=== PATIENT | male | born 1995 | race African-American/Black ===

== ENCOUNTER 2020-06-13 10:17 | Emergency (ER) | payer MEDICAID, OTHER, SELFPAY ==
[~2020-06-13 10:17] MED LIST: Iopamidol-370 76% 500 ML 1 ML ONE
[2020-06-13] MEDS ORDERED: Ondansetron ODT 4 MG TAB ONE (10:20)
[2020-06-13 10:47] LABS: #Eosinphils 0.1 thou/uL (0.0-0.7); #Lymphocytes 3.1 thou/uL (1.20-3.40); #Monocytes 0.9 thou/uL (0.11-0.59); #Neutrophils 3.7 thou/uL (1.40-6.50); %Basophils 0.5 % (0.0-1.0); %Eosinophils 1.8 % (0.0-10.0); %Lymphocytes 39.6 % (21.0-51.0); %Monocytes 11.3 % (0.0-10.0); %Neutrophils 46.8 % (42.0-75.0); Hemoglobin 15.9 g/dL (14.0-18.0); Mean Corpuscular HGB CONC 32.9 g/dL (32.0-36.0); Mean Corpuscular Volume 87.9 fL (78.0-98.0); Mean Platelet Volume 9.4 fL (7.4-10.4); Platelet Count 243 thou/uL (130-400); RBC Distribution Width 12.4 % (11.5-14.5); White Blood Cell (WBC) Count 7.9 thou/uL (4.8-10.8)
[2020-06-13 10:53] LABS: INR-International Normal Ratio 0.9; PTT 24.9 sec (22.9-36.1); Prothrombin Time 12.9 sec (12.0-14.7)
[2020-06-13] MEDS ORDERED: Ondansetron PF 4 MG/2 ML Vial ONE ×2 (10:55)
[2020-06-13] MEDS ORDERED: Morphine 4 MG/ML VIAL ONE (10:55)
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
[2020-06-13 11:29] LABS: ALT (SGPT) 27 U/L (8-55); AST (SGOT) 50 U/L (5-34); Alkaline Phosphatase 60 U/L (40-110); Anion Gap 17 mmol/L (10-20); BUN (Urea Nitrogen) 23 mg/dL (8.9-20.6); Bilirubin, Total 0.5 mg/dL (0.2-1.2); Calc. Creatinine Clearance 0 mL/min (70-130); Calcium 9.6 mg/dL (7.8-10.44); Carbon Dioxide 25 mmol/L (22-29); Chloride 102 mmol/L (98-107); Estimated GFR-MDRD 83; Globulin 2.9 g/dL (2.4-3.5); Glucose 148 mg/dL (70-105); Lipase 25 U/L (8-78); Potassium 3.4 mmol/L (3.5-5.1); Protein, Total 7.9 g/dL (6.0-8.3); Sodium 141 mmol/L (136-145)
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
[2020-06-13 11:49] LABS: Phosphorus Less than 1.0 mg/dL (2.3-4.7)
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
--- NOTE | 2020-06-13 12:22 | RAD ---
RIGHT SHOULDER 3 VIEWS: HISTORY: Fall, right shoulder pain. FINDINGS/IMPRESSION: No acute fracture or dislocation is identified. POS: AH
--- NOTE | 2020-06-13 12:23 | RAD ---
RIGHT HUMERUS 2 VIEWS: HISTORY: Fall, right arm pain. FINDINGS/IMPRESSION: The right humerus appears intact. POS: AH
[2020-06-13] MEDS ORDERED: Ketorolac Tromethamine 30 MG/ML VIAL ONE (12:25)
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
== END 2020-06-13 12:40 | disposition home or self-care (01) ==
LOC: ERS 10:17
DX: S09.90XA Unspecified injury of head, initial encounter (principal); M25.411 Effusion, right shoulder; W14.XXXA Fall from tree, initial encounter
CPT/HCPCS: 36415; 70450; 71260; 72125; 74177; 80053; 83605; 83690; 84100; 85025; 85610; 85730; 86850; 86900; 86901; 93005; 96374; 96375; J1885; J2270; J2405; Q0162; Q9967

== ENCOUNTER 2020-06-18 17:58 | Emergency (ER) | payer OTHER, SELFPAY ==
[2020-06-18] MEDS ORDERED: Ondansetron PF 4 MG/2 ML Vial ONE (18:29)
[2020-06-18] MEDS ORDERED: Acetaminophen 500 MG TAB ONE ×2 (18:40→19:03)
[2020-06-18 19:10] LABS: #Eosinphils 0.1 thou/uL (0.0-0.7); #Lymphocytes 0.8 thou/uL (1.20-3.40); #Monocytes 0.9 thou/uL (0.11-0.59); #Neutrophils 10.6 thou/uL (1.40-6.50); %Basophils 0.1 % (0.0-1.0); %Eosinophils 0.4 % (0.0-10.0); %Lymphocytes 6.4 % (21.0-51.0); %Monocytes 7.6 % (0.0-10.0); %Neutrophils 85.5 % (42.0-75.0); Hemoglobin 15.5 g/dL (14.0-18.0); Mean Corpuscular Hemoglobin 29.4 pg (27.0-31.0); Mean Corpuscular Volume 88.9 fL (78.0-98.0); Mean Platelet Volume 8.9 fL (7.4-10.4); Platelet Count 213 thou/uL (130-400); RBC Distribution Width 12.3 % (11.5-14.5); Red Blood Cell (RBC) Count 5.28 mill/uL (4.70-6.10); White Blood Cell (WBC) Count 12.4 thou/uL (4.8-10.8)
[2020-06-18 19:40] LABS: ALT (SGPT) 18 U/L (8-55); AST (SGOT) 26 U/L (5-34); Albumin 4.7 g/dL (3.5-5.0); Alkaline Phosphatase 65 U/L (40-110); Anion Gap 13 mmol/L (10-20); BUN (Urea Nitrogen) 9 mg/dL (8.9-20.6); Bilirubin, Total 0.4 mg/dL (0.2-1.2); Calc. Creatinine Clearance 0 mL/min (70-130); Calcium 9.7 mg/dL (7.8-10.44); Carbon Dioxide 28 mmol/L (22-29); Chloride 101 mmol/L (98-107); Estimated GFR-MDRD 85; Globulin 3.2 g/dL (2.4-3.5); Glucose 94 mg/dL (70-105); Lipase 16 U/L (8-78); Potassium 3.7 mmol/L (3.5-5.1); Protein, Total 7.9 g/dL (6.0-8.3); Sodium 138 mmol/L (136-145)
[2020-06-19 12:05] LABS: SARS-CoV-2 MS2 Positive; SARS-CoV-2 N Gene Negative; SARS-CoV-2 S Gene Negative; SARS-CoV-2 by NAA Not Detected (NotDetected); SARS-CoV-2 orf1ab Negative
== END 2020-06-18 20:44 | disposition home or self-care (01) ==
LOC: ERS 17:58
DX: F07.81 Postconcussional syndrome (principal); R11.2 Nausea with vomiting, unspecified; F31.9 Bipolar disorder, unspecified; Z79.899 Other long term (current) drug therapy
CPT/HCPCS: 80053; 83690; 85025; 87635; 87804; 96374; J2405; U0003

== ENCOUNTER 2021-01-04 13:48 | Emergency (ER) | payer OTHER, SELFPAY ==
[2021-01-04] MEDS ORDERED: Bicillin LA 2.4 MILL.UNITS/4 ML SYRINGE ONE (15:07)
[2021-01-04] MEDS ORDERED: cefTRIAXone\\ROCEPHIN 500 MG VIAL ONE (15:07)
[2021-01-04] MEDS ORDERED: Lidocaine 1% PF 5 ML VIAL ONE (15:08)
== END 2021-01-04 15:46 | disposition home or self-care (01) ==
LOC: ERS 13:48
DX: A64 Unspecified sexually transmitted disease (principal)
CPT/HCPCS: 96372; 99283; J0561; J0696

== ENCOUNTER 2022-09-09 03:14 | Emergency (ER) | payer SELFPAY ==
[2022-09-09] MEDS ORDERED: Lidocaine 1% w/Epinephrine 1:100K 20 ML VIAL ONE (03:36)
== END 2022-09-09 04:53 | disposition home or self-care (01) ==
LOC: ERS 03:14
DX: S61.411A Laceration without foreign body of right hand, initial encounter (principal); F17.210 Nicotine dependence, cigarettes, uncomplicated; W26.0XXA Contact with knife, initial encounter; Y93.G3 Activity, cooking and baking
CPT/HCPCS: 99282

== ENCOUNTER 2022-12-16 20:09 | Emergency (ER) | payer SELFPAY ==
[2022-12-16] MEDS ORDERED: Ketorolac Tromethamine 30 MG/ML VIAL ONE (20:33)
[2022-12-16] MEDS ORDERED: HYDROcodone/Acetaminophen 10/325 mg Tablet ONE (20:33)
== END 2022-12-16 21:48 | disposition home or self-care (01) ==
LOC: ERS 20:09
DX: K02.9 Dental caries, unspecified (principal)
CPT/HCPCS: 96372; 99282; J1885

== ENCOUNTER 2023-04-12 01:59 | Inpatient (IN) | payer OTHER, SELFPAY ==
[2023-04-12] MEDS ORDERED: Ketorolac Tromethamine 30 MG/ML VIAL ONE (02:07)
[2023-04-12] MEDS ORDERED: Morphine 4 MG/ML VIAL ONE ×2 (02:18→03:40)
[2023-04-12] MEDS ORDERED: Ondansetron PF 4 MG/2 ML Vial ONE ×2 (02:18→15:00)
[2023-04-12 02:45] LABS: #Eosinphils 0.1 thou/uL (0.0-0.7); #Monocytes 1.1 thou/uL (0.11-0.59); #Neutrophils 8.1 thou/uL (1.40-6.50); %Basophils 0.3 % (0.0-1.0); %Eosinophils 1.2 % (0.0-10.0); %Lymphocytes 21.3 % (21.0-51.0); %Neutrophils 67.9 % (42.0-75.0); Hematocrit 41.8 % (42.0-52.0); Mean Corpuscular HGB CONC 33.5 g/dL (32.0-36.0); Mean Corpuscular Hemoglobin 28.3 pg (27.0-31.0); Mean Corpuscular Volume 84.4 fl (78.0-98.0); Mean Platelet Volume 11.1 fL (7.4-10.4); Platelet Count 243 10x3/uL (130-400); RBC Distribution Width 13.8 % (11.5-14.5); Red Blood Cell (RBC) Count 4.95 mill/uL (4.70-6.10)
[2023-04-12] MEDS ORDERED: CEFAZOLIN 2 GM VIAL ONE (02:51)
[2023-04-12 03:06] LABS: ALT (SGPT) 25 U/L (8-55); AST (SGOT) 24 U/L (5-34); Albumin 4.7 g/dL (3.5-5.0); Alkaline Phosphatase 61 U/L (40-110); Anion Gap 14 mmol/L (10-20); BUN (Urea Nitrogen) 17 mg/dL (8.9-20.6); Bilirubin, Total 0.4 mg/dL (0.2-1.2); Calc. Creatinine Clearance 0 mL/min (70-130); Carbon Dioxide 24 mmol/L (22-29); Chloride 104 mmol/L (98-107); Estimated GFR 78; Globulin 3.2 g/dL (2.4-3.5); Glucose 135 mg/dL (70-105); Potassium 3.3 mmol/L (3.5-5.1); Protein, Total 7.9 g/dL (6.0-8.3); Sodium 139 mmol/L (136-145)
[2023-04-12] MEDS ORDERED: Boostrix 0.5 ML (Tdap) VIAL (>/=7 yrs of age) ONE (03:20)
[2023-04-12] MEDS ORDERED: Ondansetron PF 4 MG/2 ML Vial IVP PRN (03:22)
[2023-04-12] MEDS ORDERED: Morphine 2 MG/ML VIAL SLOW IVP PRN (03:22)
[2023-04-12 04:25] VITALS: BMI 28.5
[2023-04-12] MEDS: Dexamethasone 4 mg/ml Vial SLOW IVP SCH ×4 (04:28→23:06)
[2023-04-12] MEDS: Sodium Chloride 0.9% 1,000 ML IV SCH ×3 (04:28→20:32)
[2023-04-12 05:02] LABS: #Eosinphils 0.1 thou/uL (0.0-0.7); #Monocytes 1.1 thou/uL (0.11-0.59); #Neutrophils 12.4 thou/uL (1.40-6.50); %Basophils 0.1 % (0.0-1.0); %Eosinophils 0.3 % (0.0-10.0); %Lymphocytes 7.8 % (21.0-51.0); %Monocytes 7.3 % (0.0-10.0); %Neutrophils 84.1 % (42.0-75.0); Hematocrit 39.2 % (42.0-52.0); Hemoglobin 12.7 g/dL (14.0-18.0); Mean Corpuscular HGB CONC 32.4 g/dL (32.0-36.0); Mean Corpuscular Hemoglobin 28.2 pg (27.0-31.0); Mean Corpuscular Volume 86.9 fl (78.0-98.0); Mean Platelet Volume 10.6 fL (7.4-10.4); Platelet Count 216 10x3/uL (130-400); Red Blood Cell (RBC) Count 4.51 mill/uL (4.70-6.10); White Blood Cell (WBC) Count 14.8 10x3/uL (4.8-10.8)
[2023-04-12 05:31] LABS: Anion Gap 12 mmol/L (10-20); BUN (Urea Nitrogen) 16 mg/dL (8.9-20.6); Calc. Creatinine Clearance 132 mL/min (70-130); Calcium 8.9 mg/dL (7.8-10.44); Carbon Dioxide 26 mmol/L (22-29); Chloride 106 mmol/L (98-107); Estimated GFR 91; Glucose 107 mg/dL (70-105); Potassium 3.7 mmol/L (3.5-5.1); Sodium 140 mmol/L (136-145)
[2023-04-12] MEDS: Acetaminophen 650 MG/20.3 ML UDCUP PO SCH ×4 (05:44→23:04)
[2023-04-12 06:28] LABS: Amphetamine Not Detected (NotDetected); Barbiturates Screen Not Detected (NotDetected); Benzodiazepine Screen Not Detected (NotDetected); Cocaine Metabolite Screen Not Detected (NotDetected); Methadone Not Detected (NotDetected); Methamphetamine Not Detected (NotDetected); Opiate Screen Detected (NotDetected); Oxycodone Screen Not Detected (NotDetected); Phencyclidine (PCP) Not Detected (NotDetected); THC/Cannabinoid Screen Detected (NotDetected); Tricyclic Screen Not Detected (NotDetected)
[2023-04-12] MEDS: Morphine 4 MG/ML VIAL SLOW IVP PRN ×5 (09:34→23:13)
[2023-04-12] MEDS: Chlorhexidine Gluconate 15 ML UDCUP SSP SCH ×2 (09:34→19:27)
[2023-04-12] MEDS: Famotidine/PF 20 mg/2ml Vial SLOW IVP SCH ×2 (09:34→19:25)
[2023-04-12] MEDS: Gabapentin 300 MG CAP PO SCH ×3 (09:34→19:28)
[2023-04-12] MEDS: CEFAZOLIN 2 GM in Sodium Chloride 0.9% 100 ML IVPB SCH ×2 (09:35→18:49)
[2023-04-12] MEDS ORDERED: Fentanyl 250 MCG/5 ML VIAL ONE (14:31)
[2023-04-12] MEDS ORDERED: Midazolam HCl 2 mg/2 ml Vial ONE (14:31)
[2023-04-12] MEDS ORDERED: Chlorhexidine Gluconate 15 ML UDCUP SSP ONE (14:34)
[2023-04-12] MEDS ORDERED: Lidocaine 1% (PF) 30 ML VIAL ONE (14:34)
[2023-04-12] MEDS ORDERED: EPINEPHrine 1 MG/ML AMP ONE (14:34)
[2023-04-12] MEDS ORDERED: Lidocaine 2% 6 ML (Jelly) SYR ONE (14:38)
[2023-04-12] MEDS ORDERED: Oxymetazoline HCl 0.05% (30 ML BOT) ONE (14:39)
[2023-04-12] MEDS ORDERED: Dexamethasone 20 MG/5 ML VIAL ONE (15:00)
[2023-04-12] MEDS ORDERED: NEOSTIGMINE 3 MG/3 ML SYR 3 MG/3 ML SYRINGE ONE (15:00)
[2023-04-12] MEDS ORDERED: Glycopyrrolate 0.2 MG/ML 5 ML SYRINGE ONE (15:00)
[2023-04-12] MEDS ORDERED: PROPOFOL 200 MG/20 ML VIAL ONE (15:00)
[2023-04-12] MEDS ORDERED: Rocuronium Bromide 10 MG/ML (10ML VIAL) ONE (15:00)
[2023-04-12] MEDS ORDERED: Lidocaine 1% PF 5 ML VIAL ONE (15:00)
[2023-04-12] MEDS ORDERED: Meperidine HCl/PF 25 MG/ML VIAL SLOW IVP PRN ×2 (17:39)
[2023-04-12] MEDS ORDERED: Promethazine HCl 25 MG/ML VIAL IM PRN (17:39)
[2023-04-12] MEDS ORDERED: Ondansetron HCl/PF 4 MG/2 ML Vial IVP PRN (17:39)
[2023-04-12] MEDS ORDERED: HYDROmorphone 2 MG/ML VIAL SLOW IVP PRN (17:39)
[2023-04-12] MEDS: Acetaminophen W/ Codeine 5 ML UDCUP PO PRN (20:15)
[2023-04-13] MEDS: Morphine 4 MG/ML VIAL SLOW IVP PRN (04:37)
[2023-04-13] MEDS: Sodium Chloride 0.9% 1,000 ML IV SCH ×2 (04:40→15:03)
[2023-04-13] MEDS: Acetaminophen 650 MG/20.3 ML UDCUP PO SCH ×3 (05:06→17:05)
[2023-04-13] MEDS: Acetaminophen W/ Codeine 5 ML UDCUP PO PRN (09:11)
[2023-04-13] MEDS: Chlorhexidine Gluconate 15 ML UDCUP SSP SCH (09:12)
[2023-04-13] MEDS: Famotidine/PF 20 mg/2ml Vial SLOW IVP SCH (09:12)
[2023-04-13] MEDS: Gabapentin 300 MG CAP PO SCH ×2 (09:12→15:03)
[2023-04-13 15:39] VITALS: BP 160/53; TEMP 99.5
== END 2023-04-13 17:51 | disposition home or self-care (01) | DRG 141 ==
LOC: EEVIPCON 01:59 → ERS 01:59 → SURG A 03:26
PROVIDERS: ADMIT Specialist; ATTEND Specialist
PROC: 0NSV04Z Reposition Left Mandible with Internal Fixation Device, Open Approach (ICD-10-PCS; principal; 2023-04-12)
PROC: 0NSR04Z Reposition Maxilla with Internal Fixation Device, Open Approach (ICD-10-PCS; 2023-04-12)
DX: S02.652B Fracture of angle of left mandible, initial encounter for open fracture (principal); S22.31XA Fracture of one rib, right side, initial encounter for closed fracture; S02.66XB Fracture of symphysis of mandible, initial encounter for open fracture; Y04.8XXA Assault by other bodily force, initial encounter; I10 Essential (primary) hypertension; Y92.89 Other specified places as the place of occurrence of the external cause
CPT/HCPCS: 36415; 70450; 70486; 71045; 72125; 80053; 80306; 85025; 90471; 90715; 96365; 96372; 96375; 96376; C1713; C1788; J0171; J1100; J1885; J2001; J2250; J2270; J2272; J2405; J2704; J3010; J3490; J7050; S0028

== ENCOUNTER 2023-04-16 06:30 | Observation (INO) | payer SELFPAY ==
[2023-04-16] MEDS ORDERED: Ketorolac Tromethamine 30 MG/ML VIAL ONE (06:47)
[2023-04-16] MEDS ORDERED: Ondansetron PF 4 MG/2 ML Vial ONE (06:59)
[2023-04-16 07:07] LABS: #Eosinphils 0.1 thou/uL (0.0-0.7); #Monocytes 0.9 thou/uL (0.11-0.59); #Neutrophils 5.4 thou/uL (1.40-6.50); %Basophils 0.2 % (0.0-1.0); %Eosinophils 1.4 % (0.0-10.0); %Lymphocytes 24.1 % (21.0-51.0); %Monocytes 10.3 % (0.0-10.0); %Neutrophils 63.8 % (42.0-75.0); Hematocrit 44.3 % (42.0-52.0); Hemoglobin 14.4 g/dL (14.0-18.0); Mean Corpuscular HGB CONC 32.5 g/dL (32.0-36.0); Mean Corpuscular Hemoglobin 27.7 pg (27.0-31.0); Mean Corpuscular Volume 85.4 fl (78.0-98.0); Mean Platelet Volume 10.4 fL (7.4-10.4); Platelet Count 268 10x3/uL (130-400); RBC Distribution Width 13.2 % (11.5-14.5); Red Blood Cell (RBC) Count 5.19 mill/uL (4.70-6.10); White Blood Cell (WBC) Count 8.5 10x3/uL (4.8-10.8)
[2023-04-16 07:31] LABS: ALT (SGPT) 28 U/L (8-55); AST (SGOT) 27 U/L (5-34); Albumin 4.3 g/dL (3.5-5.0); Alkaline Phosphatase 57 U/L (40-110); Anion Gap 15 mmol/L (10-20); BUN (Urea Nitrogen) 19 mg/dL (8.9-20.6); Bilirubin, Total 1.4 mg/dL (0.2-1.2); CK (CPK) 102 U/L (30-200); Calc. Creatinine Clearance 0 mL/min (70-130); Calcium 9.6 mg/dL (7.8-10.44); Carbon Dioxide 27 mmol/L (22-29); Chloride 100 mmol/L (98-107); Estimated GFR 120; Globulin 3.4 g/dL (2.4-3.5); Glucose 92 mg/dL (70-105); Potassium 3.6 mmol/L (3.5-5.1); Protein, Total 7.7 g/dL (6.0-8.3); Sodium 138 mmol/L (136-145)
[2023-04-16] MEDS ORDERED: Morphine 4 MG/ML VIAL ONE (08:02)
[2023-04-16] MEDS ORDERED: Ampicillin/Sulbactam 1.5 GM in Sodium Chloride 0.9% 100 ML IVPB SCH (08:30)
[2023-04-16] MEDS ORDERED: TETANUS, DIPHTHERIA TOX,ADULT (TDVAX) 0.5 ML VIAL IM ONE (11:51)
[2023-04-16] MEDS ORDERED: Acetaminophen 325 MG TAB PO PRN (11:51)
[2023-04-16] MEDS ORDERED: traMADol HCl 50 MG TAB PO PRN (11:51)
[2023-04-16] MEDS ORDERED: Ondansetron PF 4 MG/2 ML Vial IVP PRN (11:51)
[2023-04-16] MEDS ORDERED: Glucagon 1 MG/ML KIT IM PRN (11:55)
[2023-04-16] MEDS ORDERED: Dextrose 5% in Water 1,000 ML IV PRN (11:55)
[2023-04-16] MEDS ORDERED: Dextrose 50% Abboject 50 ML SYRINGE SLOW IVP PRN (11:55)
[2023-04-16 14:49] VITALS: BMI 26.3
[2023-04-16] MEDS: Sodium Chloride 0.9% 1,000 ML IV SCH ×2 (15:32→23:24)
[2023-04-16] MEDS: Famotidine/PF 20 mg/2ml Vial SLOW IVP SCH (19:59)
[2023-04-16] MEDS: Morphine 2 MG/ML VIAL SLOW IVP PRN ×2 (20:00→23:21)
[2023-04-17] MEDS: Morphine 2 MG/ML VIAL SLOW IVP PRN ×3 (01:53→07:58)
[2023-04-17 05:48] LABS: #Eosinphils 0.2 thou/uL (0.0-0.7); #Monocytes 0.8 thou/uL (0.11-0.59); #Neutrophils 5.8 thou/uL (1.40-6.50); %Basophils 0.2 % (0.0-1.0); %Eosinophils 2.7 % (0.0-10.0); %Monocytes 9.4 % (0.0-10.0); %Neutrophils 65.5 % (42.0-75.0); Hematocrit 41.3 % (42.0-52.0); Hemoglobin 13.3 g/dL (14.0-18.0); Mean Corpuscular HGB CONC 32.2 g/dL (32.0-36.0); Mean Corpuscular Hemoglobin 27.9 pg (27.0-31.0); Mean Corpuscular Volume 86.6 fl (78.0-98.0); Mean Platelet Volume 9.9 fL (7.4-10.4); Platelet Count 259 10x3/uL (130-400); RBC Distribution Width 12.8 % (11.5-14.5); Red Blood Cell (RBC) Count 4.77 mill/uL (4.70-6.10); White Blood Cell (WBC) Count 8.8 10x3/uL (4.8-10.8)
[2023-04-17] MEDS: Sodium Chloride 0.9% 1,000 ML IV SCH (06:13)
[2023-04-17 06:37] LABS: Anion Gap 12 mmol/L (10-20); BUN (Urea Nitrogen) 14 mg/dL (8.9-20.6); Calc. Creatinine Clearance 156 mL/min (70-130); Calcium 8.8 mg/dL (7.8-10.44); Carbon Dioxide 26 mmol/L (22-29); Chloride 103 mmol/L (98-107); Estimated GFR 122; Glucose 82 mg/dL (70-105); Potassium 3.8 mmol/L (3.5-5.1); Sodium 137 mmol/L (136-145)
[2023-04-17] MEDS: Famotidine/PF 20 mg/2ml Vial SLOW IVP SCH (07:37)
[2023-04-17 09:59] LABS: Troponin I Less than 0.010 ng/mL (< 0.028)
[2023-04-17] MEDS ORDERED: Ketorolac Tromethamine 30 MG/ML VIAL IVP SCH (12:00)
[2023-04-17 12:18] VITALS: BP 152/84; TEMP 97.8
== END 2023-04-17 12:40 | disposition home or self-care (01) ==
LOC: ERS 06:30 → SURG B 11:51
PROVIDERS: ADMIT Surgery; ATTEND Surgery
DX: S02.609A Fracture of mandible, unspecified, initial encounter for closed fracture (principal); E86.0 Dehydration; Y04.8XXA Assault by other bodily force, initial encounter
CPT/HCPCS: 36415; 71045; 80048; 80053; 82550; 84484; 85025; 86140; 93005; 93010; 96365; 96375; J0295; J1885; J2270; J2272; J2405; J3490; J7050; S0028

== ENCOUNTER 2024-09-07 18:58 | Emergency (ER) | payer OTHER, SELFPAY ==
[2024-09-07] MEDS ORDERED: HYDROcodone/Acetaminophen 10/325 mg Tablet ONE (21:19)
== END 2024-09-07 22:05 ==
LOC: EEVIPCON 18:58 → ERS 18:58
DX: M79.644 Pain in right finger(s) (principal); I10 Essential (primary) hypertension; W21.05XA Struck by basketball, initial encounter; Y93.67 Activity, basketball
CPT/HCPCS: 29125; 99283

== ENCOUNTER 2024-10-31 01:04 | Emergency (ER) | payer OTHER, SELFPAY ==
[2024-10-31] MEDS ORDERED: Ketorolac Tromethamine 30 MG (1 mL) VIAL ONE (02:59)
== END 2024-10-31 03:48 ==
LOC: ERS 01:04 → EEVIPCON 01:04 → ERS 03:48
DX: S09.93XA Unspecified injury of face, initial encounter (principal); R68.84 Jaw pain; K08.89 Other specified disorders of teeth and supporting structures; I10 Essential (primary) hypertension; W52.XXXA Crushed, pushed or stepped on by crowd or human stampede, initial encounter; Y93.67 Activity, basketball
CPT/HCPCS: 70486; 96372; J1885